=== PATIENT | female | born 1995 | race Caucasian/White ===

== ENCOUNTER → 2017-03-26 12:58 | Outpatient (CLI) | payer SELFPAY ==
--- NOTE | 2017-03-26 13:03 | US_ITS ---
STUDY: ULTRASOUND BREAST - RIGHT REASON FOR EXAM: Female, 21 years old. Palpable lump in the right breast. TECHNIQUE: Axial and longitudinal images of the RIGHT breast were performed with a high resolution ultrasound transducer. COMPARISON: None. FINDINGS: RIGHT Breast: The upper half of the right breast was examined by ultrasound. There is a homogeneous fibroglandular tissue. No solid or cystic mass lesion is seen. US/Breast Limited Unilateral IMPRESSION: Unremarkable sonographic examination of the breast. ASSESSMENT CATEGORY: BIRADS Category 1: Negative. A letter regarding these results will be sent to the patient by the facility within 30 days. Electronically Signed: Panchito Del Real MD at 14:04 EST Tel [phone], Service support ,
== END ==
DX: N63.12 Unspecified lump in the right breast, upper inner quadrant (principal)
CPT/HCPCS: 76642

== ENCOUNTER 2018-01-21 13:56 | Emergency (ER) | payer SELFPAY ==
[2018-01-21 13:57] VITALS: BP 188/91; PULSE 110; RESP 18; TEMP 36.2; O2SAT 98; BMI 40.4
--- NOTE | 2018-01-21 14:12 | NURSING ---
pt has has bad headaches x1 week, no past hx of HTN
[2018-01-21 14:13] VITALS: BP 150/79; PULSE 104; RESP 16; O2SAT 98
--- NOTE | 2018-01-21 14:35 | ED.VISSUMM ---
- ER Visit Summary Date of Service: 01/21/18 Chief Complaint: Elevated blood pressure History of Present Illness: The patient is a 22 F of elevated blood pressure which she was not started on medication. Had intermittent headaches. And had a blood pressure taken yesterday it was 175/96. She denies any chest pain. She denies any shortness of breath. Her last menstrual period was about a month ago. She denies any neurological symptoms. No numbness or weakness. No trouble with her balance. No visual change. Physical Examination: Ill-appearing young female. Vital signs are stable initial blood pressure 150/79. She does not look septic or toxic. She is in no distress. H EENT exam normal. No facial droop. Normal speech. Neck nontender. Lungs clear to auscultation bilaterally. Heart regular rhythm no murmur. Abdomen soft nontender. Normal bowel sounds no peritoneal signs. She is obese. Patient is moving all 4 extremities. They are neurovascularly intact. Calves are nontender without edema or cords. Neurologically she is awake and alert with no focal motor or sensory deficits. Bilateral 5 out of 5 post anesthesia room nurse strength. Dorsi plantar flexion intact. Fingertip to nose within normal limits. NIH is 0. Test Results: None Emergency Department Course and Treatment: Patient be started on lisinopril 20 mg a day. Log her blood pressures 2-3 times daily. She is not currently no primary care physician and she will be instructed to follow-up with Dr. Mik Hargrove. Treatment Plan: Start on lisinopril for her blood pressure. Disposition: Discharge Impression: Acute hypertension This note was generated with [employer] dictation software. It may contain incorrect words, spelling, and punctuation that were not noted in review of the chart prior to signing ED Disposition - Plan for ED Patient: Chief Complaint: Hypertension Referrals: Care Physician,No Primary [Primary Care Provider] -
--- NOTE | 2018-01-21 14:38 | ED.DCSUM_ITS ---
- ER Visit Summary Date of Service: 01/21/18 Chief Complaint: Elevated blood pressure History of Present Illness: The patient is a 22 F of elevated blood pressure which she was not started on medication. Had intermittent headaches. And had a blood pressure taken yesterday it was 175/96. She denies any chest pain. She denies any shortness of breath. Her last menstrual period was about a month ago. She denies any neurological symptoms. No numbness or weakness. No trouble with her balance. No visual change. Physical Examination: Ill-appearing young female. Vital signs are stable initial blood pressure 150/79. She does not look septic or toxic. She is in no distress. H EENT exam normal. No facial droop. Normal speech. Neck nontender. Lungs clear to auscultation bilaterally. Heart regular rhythm no murmur. Abdomen soft nontender. Normal bowel sounds no peritoneal signs. She is obese. Patient is moving all 4 extremities. They are neurovascularly intact. Calves are nontender without edema or cords. Neurologically she is awake and alert with no focal motor or sensory deficits. Bilateral 5 out of 5 turnstile attendant strength. Dorsi plantar flexion intact. Fingertip to nose within normal limits. NIH is 0. Test Results: None Emergency Department Course and Treatment: Patient be started on lisinopril 20 mg a day. Log her blood pressures 2-3 times daily. She is not currently no primary care physician and she will be instructed to follow-up with Dr. Mik Hargrove. Treatment Plan: Start on lisinopril for her blood pressure. Disposition: Discharge Impression: Acute hypertension This note was generated with [employer] dictation software. It may contain incorrect words, spelling, and punctuation that were not noted in review of the chart prior to signing ED Disposition - Plan for ED Patient: Chief Complaint: Hypertension Referrals: Care Physician,No Primary [Primary Care Provider] -
--- NOTE | 2018-01-21 14:40 | ED.DEP ---
ED Disposition - Plan for ED Patient: Disposition: Home or Assisted Living Chief Complaint: Hypertension Instructions: ED HTN Established Prescriptions: Lisinopril [Zestril] 20 mg PO DAILY #30 tab Referrals: Mik Hargrove MD [STAFF PHYSICIAN] - Additional Instructions: All your blood pressures daily x2. Start the lisinopril take 1 pill/day. Follow-up with your doctor and bring your blood pressure readings so they can adjust her medications accordingly.
[2018-01-21] MEDS: Lisinopril 20 MG Tablet PO (14:52)
[2018-01-21 14:57] VITALS: BP 160/100; PULSE 100; RESP 16; O2SAT 98
--- OUTSIDE RECORDS SUMMARY | 2018-03-18 14:11 | XMS RPT_ITS ---
:1995 Author Organization [facility] Care Team Providers Name Role Phone THOMAS STRICKLAND Attending Unavailable Primay Care Physicia, No Primary Care Unavailable Primay Care Physicia, No Primary Care Unavailable Dillan Jewell Attending Unavailable PROBLEMS PROBLEMS No Problem Records FoundPROCEDURES PROCEDURES No Procedure Records FoundRESULTS RESULTS DISCHARGE INSTRUCTION Observed: 01/21/2018 Status: F Source: [place] 4:17 PM [facility] Medical Records Department [address] [place] [address] Discharge Instruction 01/21/18 1440 MR#: [id number] Acct: [id number] Name: DONAL STOREY Rep #: [id number] : 1995 22 From: Dillan Jewell MD PCP: Care Physician, No Primary Status: DEP ER ED Disposition - Plan for ED Patient: Disposition: Home or Assisted Living Chief Complaint: Hypertension Instructions: ED HTN Established Prescriptions: Lisinopril [Zestril] 20 mg PO DAILY #30 tab Referrals: Mik Hargrove MD [STAFF PHYSICIAN] - Additional Instructions: All your blood pressures daily x2. Start the lisinopril take 1 pill/day. Follow-up with your doctor and bring your blood pressure readings so they can adjust her medications accordingly. What to do if you have Problems For any increased pain, shortness of breath, bleeding, nausea or vomiting, chest pain, or any unexpected problems, contact your Primary Care Provider. Call [facility] ([phone]) or report to the closest Emergency Room. Call 911 if necessary. 01/21/18 1617 <Electronically signed by Dillan Jewell MD> Date Dillan Jewell MD Cosigner Signature (If Indicated): Date CC: No Primary Care Physician EMERGENCY DEPARTMENT Observed: 01/21/2018 Status: F Source: [place] SUMMARY 4:17 PM [facility]POS[facility] Medical Records Department [address] [facility] [place] [address] Emergency Department Summary 01/21/18 1435 MR#: [id number] Acct: [id number] Name: ARLEIGHDONAL B Rep #: [id number] : 1995 22 From: Dillan Jewell MD PCP: Care Physician, No Primary Status: DEP ER - ER Visit Summary Date of Service: 01/21/18 Chief Complaint: Elevated blood pressure History of Present Illness: The patient is a 22 F of elevated blood pressure which she was not started on medication. Had intermittent headaches. And had a blood pressure taken yesterday it was 175/96. She denies any chest pain. She denies any shortness of breath. Her last menstrual period was about a month ago. She denies any neurological symptoms. No numbness or weakness. No trouble with her balance. No visual change. Physical Examination: Ill-appearing young female. Vital signs are stable initial blood pressure 150/79. She does not look septic or toxic. She is in no distress. H EENT exam normal. No facial droop. Normal speech. Neck nontender. Lungs clear to auscultation bilaterally. Heart regular rhythm no murmur. Abdomen soft nontender. Normal bowel sounds no peritoneal signs. She is obese. Patient is moving all 4 extremities. They are neurovascularly intact. Calves are nontender without edema or cords. Neurologically she is awake and alert with no focal motor or sensory deficits. Bilateral 5 out of 5 radiology asst strength. Dorsi plantar flexion intact. Fingertip to nose within normal limits. NIH is 0. Test Results: None Emergency Department Course and Treatment: Patient be started on lisinopril 20 mg a day. Log her blood pressures 2-3 times daily. She is not currently no primary care physician and she will be instructed to follow-up with Dr. Mik Hargrove. Treatment Plan: Start on lisinopril for her blood pressure. Disposition: Discharge Impression: Acute hypertension This note was generated with [employer] dictation software. It may contain incorrect words, spelling, and punctuation that were not noted in review of the chart prior to signing ED Disposition - Plan for ED Patient: Chief Complaint: Hypertension Referrals: Care Physician,No Primary [Primary Care Provider] - What to do if you have Problems For any increased pain, shortness of breath, bleeding, nausea or vomiting, chest pain, or any unexpected problems, contact your Primary Care Provider. Call [facility] ([phone]) or report to the closest Emergency Room. Call 911 if necessary. 01/21/18 1617 <Electronically signed by Dillan Jewell MD> Date Dillan Jewell MD Cosigner Signature (If Indicated): Date CC: No Primary Care Physician BREAST LIMITED Observed: 03/26/2017 Status: F Source: [place] UNILATERAL 1:03 PM [facility] REPOS[facility] Imaging Services [address] [place] [address] Breast Limited Unilateral MR#: [id number] Acct: [id number] Name: DONAL STOREY Rep #: [id number] : 1995 F 21 From: Panchito Del Real MD PCP: Care Physician, No Primary Status: REG CLI Study: Breast Limited Unilateral Date of Exam: 03/26/17 Exam# [id number] Ordering Dr: CHECO GASPAR CNP STUDY: ULTRASOUND BREAST - RIGHT REASON FOR EXAM: Female, 21 years old. Palpable lump in the right breast. TECHNIQUE: Axial and longitudinal images of the RIGHT breast were performed with a high resolution ultrasound transducer. COMPARISON: None. FINDINGS: RIGHT Breast: The upper half of the right breast was examined by ultrasound. There is a homogeneous fibroglandular tissue. No solid or cystic mass lesion is seen. US/Breast Limited Unilateral IMPRESSION: Unremarkable sonographic examination of the breast. ASSESSMENT CATEGORY: BIRADS Category 1: Negative. A letter regarding these results will be sent to the patient by the facility within 30 days. Electronically Signed: Panchito Del Real MD at 14:04 EST Tel [phone], Service support , CC: No Primary Care Physician; CHECO GASPAR Ux Manager: Signed ALLERGIES ALLERGIES DATE TYPE / CODE NAME / CODE REACTION SEVERITY SOURCE 01/21/2018 Drug clarithromyc Swelling Unknown [facility] Allergy/4160 in/[id number] Hospital [facility](SNOMED 8(RXNORM) Repository CT) 01/21/2018 Drug azithromycin Swelling Unknown [facility] Allergy/4160 /[id number]( [place] [address](SNOMED RXNORM) Repository CT) ENCOUNTERS ENCOUNTERS ADMIT/DISCHARGE ACCOUNT ADMITTING ENCOUNTER LOCATION SOURCE NUMBER CLASS 01/21/2018/ [id number] Emergency [place] 8 6 [facility] ing:ED Repository 03/26/2017 [id number] Ambulatory [place] 2 [facility] ing:[facility] Repository PAYERS PAYERS ENCOUNTER GUARANTOR PAYER SUBSCRIBER SOURCE 01/21/2018 DONAL García Primary NOT GIVENUNK [place] [id number] Insurance:SELF PAY [facility] [id number]: [phone]) Number: Effective Repository [phone] () Date:2018-01-21 03/26/2017 Donal Primary NOT GIVENHERMAN [id number] Insurance:SELF PAY [place], [place] Number: Effective Repository [phone]: [phone]) Date:2017-03-25 [phone] ()
== END 2018-01-21 15:00 | disposition home or self-care (01) ==
LOC: ED 14:46
PROVIDERS: Emergency Provider Emergency Medicine
DX: I10 Essential (primary) hypertension (principal); E66.9 Obesity, unspecified
CPT/HCPCS: 99283

== ENCOUNTER 2019-04-30 17:07 | Emergency (ER) | payer SELFPAY ==
[2019-04-30 17:08] VITALS: BP 160/81; PULSE 89; RESP 17; TEMP 36.4; O2SAT 99; BMI 49.0
--- NOTE | 2019-04-30 17:41 | ED.VIS.LOWEX ---
History of Present Illness Chief Complaint: Lower Extremity Injury Narrative: Patient presenting for evaluation secondary to right leg pain. Patient reports that yesterday she was simply walking, and had a sudden onset of pain in her right calf. She reports that she felt and heard a pop in her calf, and now she has difficulty with ambulating and pain with plantarflexion of her foot. She denies that she has any inability to plantarflex her foot. She denies any numbness or weakness. She denies any chest pain shortness of breath history of DVT or PE. She denies any other injuries associated with this. Pain is moderate. Past Medical History - Allergies and Home Meds Allergies/Adverse Reactions: Allergies azithromycin [From Zithromax Z-Lee] Allergy (Verified 04/30/19 17:07) Swelling clarithromycin [From Biaxin] Allergy (Verified 04/30/19 17:07) Swelling Primary Care Physician: Care Physician,No Primary [Primary Care Provider] - Past Medical History: None Smoking Status: Heavy Smoker (>10/day) Review of Systems All systems negative except as indicated General: Denies: Chills, Fever, Sweats Eyes: Denies: Visual changes - bilaterally, Diplopia ENT: Denies: Rhinorrhea, Sore throat Cardiovascular: Denies: Chest pain, Palpitations Respiratory: Denies: Dyspnea, Cough, Dyspnea on exertion Gastrointestinal: Denies: Abdominal pain, Nausea, Vomiting, Diarrhea, Melena, Hematochezia Genitourinary: Denies: Dysuria, Hematuria, Frequency Musculoskeletal: Reports: Extremity Pain Skin: Denies: Rash, Wounds Neurological: Denies: Headache, Weakness, Numbness Physical Exam Vital Signs/Narrative: Vital Signs Temp Pulse Resp BP Pulse Ox 04/30/19 17:08 97.5 F L 89 17 160/81 H 99 Inital Vital Signs reviewed: Yes - Extremity Exam Right Ankle: - - Examination of the patient's right lower extremity shows normal sensation and pulses that are bilaterally symmetric. Skin is normal. Patient has pain with palpation of the proximal calf without any obvious masses or deformity. No palpable cord. Patient has a negative Roberson test with no palpable deformities in the Achilles. Normal dorsiflexion and plantarflexion at the ankle. General: Well nourished, Well developed, Obese Head: Normocephalic Eyes: EOMI ENT: No Trauma Neck: Nontender, Full ROM Cardiovascular: Regular rate, Regular rhythm, No murmurs Respiratory: No distress, CTA bilaterally Skin: Normal color, No rash Neurological: Alert, Oriented x3, Normal Strength, Normal Sensation Diagnostic/Tx/Re-eval - Medical Decision Making Patient presented with a sudden onset of right calf pain. She has no palpable defects in her Achilles. This does not seem like a presentation of Achilles tendon rupture. She has no weakness with plantar flexion. Patient also has no palpable cord or any risks of DVT or PE. This likely is a partial tear of the patient's gastrocnemius. Patient will be immobilized with a walking boot and will be given orthopedics for follow-up. ED Disposition - Plan for ED Patient: Disposition: Home or Assisted Living Diagnosis: Gastrocnemius muscle rupture Instructions: MUSCLE STRAIN, Extremity Referrals: Jarvis Murphy DO [STAFF PHYSICIAN] - 1 Week
== END 2019-04-30 18:10 | disposition home or self-care (01) ==
LOC: ED 18:02
PROVIDERS: Emergency Provider Emergency Medicine
DX: S86.111A Strain of other muscle(s) and tendon(s) of posterior muscle group at lower leg level, right leg, initial encounter (principal); X58.XXXA Exposure to other specified factors, initial encounter; Y93.9 Activity, unspecified; Y92.9 Unspecified place or not applicable; Y99.9 Unspecified external cause status; E66.9 Obesity, unspecified; F17.200 Nicotine dependence, unspecified, uncomplicated; Z88.1 Allergy status to other antibiotic agents
CPT/HCPCS: 99283

== ENCOUNTER → 2019-07-10 13:55 | Outpatient (CLI) | payer OTHER, SELFPAY ==
--- NOTE | 2019-07-10 14:04 | US_ITS ---
STUDY: ULTRASOUND BREAST - RIGHT REASON FOR EXAM: Female, 23 years old. Palpable lump in the right breast. TECHNIQUE: Axial and longitudinal images of the RIGHT breast were performed with a high resolution ultrasound transducer. # OF IMAGES: 28 COMPARISON: None. FINDINGS: RIGHT Breast: There is no abnormality in the soft tissues of the breast to correlate with the mammographic abnormality. There is no abnormal soft tissue tissue mass. There is no cyst formation. US/Breast Limited Unilateral IMPRESSION: There is no abnormality in the soft tissues of the breast to correlate with the mammographic abnormality. There is no abnormal soft tissue tissue mass. There is no cyst formation. ASSESSMENT CATEGORY: BIRADS Category 2: Benign. A letter regarding these results will be sent to the patient by the facility within 30 days. Electronically Signed: Mirna Marroquin, at 13:56 EDT Tel , Service support ,
--- NOTE | 2019-07-10 14:04 | BI_ITS ---
MAMMOGRAPHY - BILATERAL DIAGNOSTIC REASON FOR EXAM: Female, 23 years old. RT LUMP PERTINENT HISTORY: NO FM HX, DOCTOR FOUND RT LUMP 9-11 O''CLOCK AREA AUGUST 2018 -PT CAN NOT FEEL IT , RT U/S OF DIFFERENT AREA IN 2018=NEG, THIS IS HER FIRST MAMMOGRAM TECHNIQUE: Digital bilateral breast georgina (3D mammographic acquisition) in the CC and MLO projections. 2-D mediolateral oblique (MLO) and craniocaudad (CC) views of both breasts were obtained. CAD: Full Field Digital Mammography with Computer Added Detection was performed. COMPARISON: None. FINDINGS: Breast Composition: There are scattered areas of fibroglandular density. There are no dominant masses or suspicious calcifications. No other significant abnormalities are identified. BI/DIAG MAMM W/CAD, BILAT IMPRESSION: Stable bilateral diagnostic mammogram. One year follow-up recommended. (A) ASSESSMENT CATEGORY: BIRADS Category 2: Benign. A letter regarding these results will be sent to the patient by the facility within 30 days. Approximately 10% of breast cancers are not detected by mammography. A normal mammogram should not delay biopsy of a clinically suspicious abnormality. Electronically Signed: Mirna Marroquin, at 12:26 EDT Tel , Service support ,
== END ==
PROVIDERS: Visit Provider Nurse Practitioner Women's Health
DX: N63.11 Unspecified lump in the right breast, upper outer quadrant (principal)
CPT/HCPCS: 76642; 77062; 77066; G0279

== ENCOUNTER 2020-02-24 03:47 | Emergency (ER) | payer OTHER, SELFPAY ==
[2020-02-24 03:50] VITALS: BP 143/92; PULSE 96; RESP 16; TEMP 36.8; O2SAT 99; BMI 40.4
--- NOTE | 2020-02-24 04:05 | ED.VIS.GEN ---
History of Present Illness Chief Complaint: Fever Informant: Patient Narrative: Patient stated she is having dental pain for last week course of last couple days. Right upper premolar. She doesn't have an appointment with her dentist yet. Requesting antibiotics to have this under control. She has had this before. States she has some very mild right cheek swelling. She noticed some fevers of the last couple days. No other coronavirus symptoms. Wanted to get things under control. Current severity mild. Use Tylenol and ibuprofen. Past Medical History - Allergies and Home Meds Allergies/Adverse Reactions: Allergies azithromycin [From Zithromax Z-Lee] Allergy (Verified 02/24/20 03:49) Swelling clarithromycin [From Biaxin] Allergy (Verified 02/24/20 03:49) Swelling Primary Care Physician: Ivy Reynaga MD [Primary Care Provider] - Prior records reviewed: Yes Past Medical History: - - Reviewed Surgical History: - - Reviewed Smoking Status: Never smoker Alcohol: None Drugs: None Review of Systems General: Reports: Fever. Denies: Chills, Sweats Eyes: Denies: Visual changes - bilaterally, Diplopia ENT: Reports: - - Right upper dental pain. Denies: Rhinorrhea, Sore throat Cardiovascular: Denies: Chest pain, Palpitations Respiratory: Denies: Dyspnea, Cough, Dyspnea on exertion Gastrointestinal: Denies: Abdominal pain, Nausea, Vomiting, Diarrhea, Melena, Hematochezia Genitourinary: Denies: Dysuria, Hematuria, Frequency Musculoskeletal: Denies: Back pain, Extremity Pain Skin: Denies: Rash, Wounds Neurological: Denies: Headache, Weakness, Numbness Physical Exam Vital Signs/Narrative: Vital Signs Temp Pulse Resp BP Pulse Ox 02/24/20 03:50 98.2 F 96 16 143/92 H 99 General: Well nourished, Well developed, No Acute Distress Head: Normocephalic, Atraumatic Eyes: Perrl, EOMI ENT: Moist mucous membranes, No rhinorrhea, - - Right upper dental tenderness with no abscess. On the molar tooth. Neck: Supple, Nontender Cardiovascular: Regular rate, Regular rhythm, No murmurs Respiratory: No distress, CTA bilaterally, Chest nontender Abdomen: Soft, Nontender, Nondistended, Normal bowel sounds Back: Nontender, Normal Inspection Extremities: Nontender, No edema Skin: Normal color, No rash Neurological: Alert, Oriented x3, Cranial nerves II-XII grossly intact, Normal Strength, Normal Sensation Psychological: Normal affect, Normal Mood Diagnostic/Tx/Re-eval - Medical Decision Making Amoxicillin for suspected periapical dental infection. Coronavirus outpatient swab sent. We'll continue [id number] and follow-up as an outpatient ED Disposition - Plan for ED Patient: Disposition: Home or Assisted Living Diagnosis: Dental infection, Fever Instructions: ED Tooth Abscess, ED FUO Adult Prescriptions: Amoxicillin 500 mg PO TID #30 tab Transmission Status: Pending to [id number] Referrals: Ivy Reynaga MD [Primary Care Provider] -
[2020-02-24] MEDS: AMOXICILLIN 500 MG CAPSULE PO (04:20)
== END 2020-02-24 04:21 | disposition home or self-care (01) ==
LOC: ED 04:13
PROVIDERS: Emergency Provider Emergency Medicine; PCP Internal Medicine
DX: K04.7 Periapical abscess without sinus (principal); K08.89 Other specified disorders of teeth and supporting structures; R50.9 Fever, unspecified; Z20.828 Contact with and (suspected) exposure to other viral communicable diseases
CPT/HCPCS: 87426; 99283

== ENCOUNTER 2020-12-04 20:03 | Emergency (ER) | payer OTHER, SELFPAY ==
[2020-12-04 20:03] VITALS: BP 135/67; PULSE 106; RESP 18; TEMP 36.4; O2SAT 97; BMI 46.7
== END 2020-12-04 20:46 | disposition left against medical advice (07) ==
LOC: ED 20:55
PROVIDERS: PCP Internal Medicine
DX: M79.645 Pain in left finger(s) (principal); Z53.21 Procedure and treatment not carried out due to patient leaving prior to being seen by health care provider

== ENCOUNTER 2020-12-21 09:50 | Emergency (ER) | payer OTHER, SELFPAY ==
[2020-12-21 09:51] VITALS: BP 135/80; PULSE 106; RESP 18; TEMP 36.8; O2SAT 98; BMI 41.5
--- NOTE | 2020-12-21 10:24 | EDS_ITS ---
HPI History of Present Illness Chief Complaint: Back Informant: patient Onset/Context/Timing Onset: Weeks Context: Gradual Onset Timing: Continuous Quality: Sharp Location: Buttock Current Severity: Mild Maximum Severity: Moderate Worsened by: improves with Movement Relieved by: Nothing Associated Symptoms Associated Symptoms: Negative for Numbness, Tingling, Radiation to Right Leg, Ra diation to Left Leg, Fever, Abdominal Pain, Dysuria, Unable to Ambulate, Unable to Transfer, Urinary Retention, Urinary Incontinence and Constipation Narrative Narrative: 25-year-old female complaining of right lower back buttock pain. Denies any trauma or fever. No back history. No history of sciatica. Was seen in urgent care had microscopic blood in her urine but no signs of infection. They diagnosed her as sciatica. She says she has been taking Tylenol and Aleve without any relief. Prior similar symptoms: No Recent Illness/Hospitalization: No PFSH PFSH Medical History Depression Essential hypertension Sinus tachycardia Home Medications duloxetine 40 mg PO DAILY 02/24/20 [History Last Taken Unknown] prednisone 40 mg PO DAILY 7 Days #14 tab 12/21/20 [Rx Last Taken Unknown] Allergy/AdvReac Type Severity Reaction Status Date / Time azithromycin Allergy Swelling Verified 12/21/20 09:52 [From Zithromax Z-Lee] clarithromycin [From Biaxin] Allergy Swelling Verified 12/21/20 09:52 Family History Father Diabetes Grandmother Cancer Lung Grandfather Diabetes Social History Smoking Status: Never smoker alcohol intake: never substance use type: does not use ROS ROS ED ROS Narrative Denies recent illness. No dysuria. Review of Systems ROS Unobtainable: Denies due to encephalopathy Constitutional Constitutional ED: Denies fever(s) Eyes Eyes: Denies change in vision ENT ENT ED: Denies ear pain Cardiovascular Cardiovascular: Denies chest pain Respiratory/Chest Respiratory/Chest: Denies dyspnea Gastrointestinal Gastrointestinal: Denies abdominal pain Genitourinary Genitourinary ED: Denies dysuria Musculoskeletal Musculoskeletal: Reports back pain; Denies myalgias Integumentary Denies rash Neurologic Neurologic: Denies headache(s) Psychiatric Psychiatric: Denies depression Endocrine Endocrinology: Denies polyuria Hematologic/Lymphatic Hematologic/Lymphatic: Denies easy bruising Allergic/Immunologic Allergic/Immunologic ED: Denies urticaria EXAM Physical Exam Narrative Exam Narrative: 25-year-old female no acute distress vital signs stable afebrile. Back exam nontender except right SI joint tenderness. Negative straight leg raise. Both lower extremities are neurovascular intact. Spine nontender. No signs of trauma. No redness or warmth. No CVA tenderness. Heart lung abdominal exams unremarkable. Both lower extremities are neurovascular intact with normal motor strength and sensation. No cauda equina. Const Vital Signs: 12/21/20 09:51 Temperature 98.2 F Temperature Source Temporal Pulse Rate 106 H Respiratory Rate 18 Blood Pressure 135/80 H Blood Pressure Mean 98 Pulse Ox 98 Oxygen Delivery Method Room Air Positive well nourished, well developed and obese; Negative for cachectic, contractures or unkempt General Appearance ED: well developed and NAD; Negative for unkempt, cachectic, contractures or pallor Nutritional Appearance: obese; Negative for cachectic HEENT Reports moist mucous membranes Negative for trauma or tenderness Eyes PERRL and EOMs intact bilaterally Neck no lymphadenopathy, supple and no JVD General: Negative for tenderness Resp normal respiratory effort and clear to auscultation bilaterally Cardio regular rate, regular rhythm, S1 normal heart sound, S2 normal heart sound and no murmurs GI normal to inspection, nondistended, normoactive bowel sounds, soft to palpation, non-tender, non-distended and no masses Palpation: Negative for tender or guarding Back/Spine normal to inspection and no thoracic nor lumbar tenderness Back/Spine Narrative: Right SI joint tenderness exclusively. No other ten derness. Negative straight leg raise. General Back: Negative for CVA tenderness or scar(s) Cervical Spine: Negative for cervical spine tenderness Extremity normal to inspection General Extremety ED: Negative for edema or tenderness General Extremity: Negative for edema Psych mental status grossly normal Appearance: Negative for unkempt Skin no rashes or lesions noted and no wounds General Skin Exam: Negative for jaundice or pallor MDM MDM MDM Narrative Medical decision making narrative: History and exam consistent with acute sciatica. Patient has no other reproducible pain other than her right SI joint. She has a negative straight leg raise. Both lower extremities are neurovascularly intact and she has no urinary symptoms. She states that Andrew is not been giving her any significant relief. She does not want pain medications. She will be placed on prednisone given a dose here. Discharge Plan Triage Chief Complaint: Back ED Provider: John Paul Jewell Dx/Rx/DC Orders Clinical Impression: Sciatica Instructions: ED Sciatica Prescriptions: New prednisone 20 mg tablet 40 mg PO DAILY 7 Days Qty: 14 RF: 0 No Action duloxetine 30 MG capsule 40 mg PO DAILY RF: 0 Primary Care Provider: Ivy Reynaga Referrals: Ivy Reynaga MD [Primary Care Provider] - 1 Week if not improving Activity Restrictions/Additional Instructions: Ice to your right SI joint to decrease pain and inflammation. Prednisone daily for a week. Follow-up if not improving. This is consistent with right sciatica and not a kidney stone or kidney infection. This should progressively improve. Disposition Disposition: Home, Self Care
[2020-12-21] MEDS: predniSONE 20 MG Tablet 40 MG PO (10:47)
[2020-12-21 10:48] VITALS: RESP 17
== END 2020-12-21 10:53 | disposition home or self-care (01) ==
LOC: ED 10:36
PROVIDERS: Emergency Provider Emergency Medicine; PCP Internal Medicine
DX: M54.41 Lumbago with sciatica, right side (principal); I10 Essential (primary) hypertension; F32.A Depression, unspecified; E66.9 Obesity, unspecified; Z79.899 Other long term (current) drug therapy
CPT/HCPCS: 99283

== ENCOUNTER → 2021-01-22 12:55 | Outpatient (CLI) | payer OTHER, SELFPAY ==
--- NOTE | 2021-01-22 12:58 | ECHOD_ITS ---
Reason For Study: ARRHYTHMIA Procedure This was a 2D Doppler, Color Flow transthoracic echocardiogram. The study was technically difficult. Due to body habitus. Exam performed in department. Left Ventricle Based upon the 2D echocardiographic and contrast enhanced images obtained there appears to be grossly normal left ventricular size, wall motion, and systolic function. The estimated ejection fraction is 55 %. No evidence for diastolic dysfunction. Right Ventricle Normal RV size. Normal systolic function. Atria Normal left atrium. Normal right atrium. No doppler evidence for ASD. Mitral Valve There is no mitral annular calcification. 2D echocardiographic images demonstrate a small mobile echodensity on the atrial aspect of the posterior leaflet of the mitral valve appearing compatible with a fibrinous strands/Lambls excrescence. Trivial mitral valve insufficiency. Tricuspid Valve Normal tricuspid valve. Trivial tricuspid valve insufficiency. Unable to estimate RV systolic pressure/pulmonary artery pressure due to technically difficult study. Aortic Valve Trisinus/trileaflet aortic valve. Normal aortic valve. Pulmonic Valve The pulmonic valve is not well visualized. Trivial pulmonic valve insufficiency. Great Vessels Normal sized aortic root. Pericardium/Pleural No pericardial effusion. MMode/2D Measurements & Calculations LVIDd: 5.0 cm IVSd: 0.97 cm Ao root diam: 2.7 cm LVIDs: 3.5 cm LVPWd: 1.1 cm RVDd: 3.5 cm FS: 29.5 % LAV(MOD-bp): 72.3 ml LA A4 area: 22.6 cm2 LA dimension(2D): 4.1 cm LAV(MOD-bp) Indexed: 28.1 ml/m2 LAV(MOD-sp2): 67.2 ml LAV(MOD-sp4): 71.8 ml RA A4 area: 16.7 cm2 Time Measurements MV dec time: 0.22 sec Doppler Measurements & Calculations MV E max willy: 87.6 cm/sec Lat Peak E' Willy: 15.1 cm/sec Med Peak E' Willy: 11.0 cm/sec MV A max willy: 63.5 cm/sec E/E' lat: 5.8 E/E' med: 8.0 MV E/A: 1.4 Ao V2 max: 111.5 cm/sec LV V1 max: 102.2 cm/sec PA V2 max: 97.0 cm/sec Ao max P.0 mmHg LV V1 max P.2 mmHg ECHO/Echo Complete Interpretation Summary The study was technically difficult. Based upon the 2D echocardiographic and contrast enhanced images obtained there appears to be grossly normal left ventricular size, wall motion, and systolic function. The estimated ejection fraction is 55 %. 2D echocardiographic images demonstrate a small mobile echodensity on the atria l aspect of the posterior leaflet of the mitral valve appearing compatible with a fibrinous str ands/Lambls excrescence. Trivial mitral valve insufficiency. Trivial tricuspid valve insufficiency. Trivial pulmonic valve insufficiency. Unable to estimate RV systolic pressure/pulmonary artery pressure due to techni olya difficult study. No evidence for diastolic dysfunction. Ordering Physician: Judy^Thong^^^ Referring Physician: Ivy Reynaga Performed By: Valerie Jiménez, LUCINA, RVT
== END ==
LOC: CVS 12:56
PROVIDERS: PCP Internal Medicine; Referring Provider Internal Medicine Cardiovascular Disease; Visit Provider Internal Medicine Cardiovascular Disease
DX: I10 Essential (primary) hypertension (principal); R00.0 Tachycardia, unspecified; R00.2 Palpitations
CPT/HCPCS: 93225; 93226; 93306

== ENCOUNTER 2021-06-03 13:02 | Emergency (ER) | payer OTHER, SELFPAY ==
[2021-06-03 13:02] VITALS: BP 150/89; PULSE 112; RESP 18; TEMP 36.5; O2SAT 97; BMI 45.8
--- NOTE | 2021-06-03 13:11 | EX.ED.DYSGE1 ---
HPI History of Present Illness Chief Complaint: Nausea/Vomiting/Diarrhea Detail of Chief Complaint: Nausea, vomiting, and diarrhea, x5 days Informant: patient Narrative Narrative: Patient presents to the emergency department with vomiting and diarrhea that started 5 days ago. She initially had a fever. Patient ate a hamburger the night before she started feeling sick. Patient states 2 hours after eating a hamburger she just did not feel well but then the next morning she woke up and started having vomiting and diarrhea. During the first day she had fever but none since. Still having watery stool. There is no blood in her stool or emesis. Patient states she cannot keep anything down. She describes bloating and diffuse abdominal discomfort. She denies any sick contacts. She is not had recent antibiotic usage. Prior similar symptoms: No PFSH PFSH Medical History Depression Essential hypertension Sinus tachycardia Home Medications duloxetine 40 mg capsule,delayed release 40 mg PO DAILY 01/02/21 [History Last Taken Unknown] diphenoxylate-atropine [Lomotil] 2 tab PO TID PRN #20 tab 06/03/21 [Rx Last Taken Unknown] ondansetron 4 mg PO Q8H PRN PRN #10 tab 06/03/21 [Rx Last Taken Unknown] Allergy/AdvReac Type Severity Reaction Status Date / Time azithromycin Allergy Swelling Verified 06/03/21 13:05 [From Zithromax Z-Lee] clarithromycin [From Biaxin] Allergy Swelling Verified 06/03/21 13:05 Family History Father Diabetes Grandmother Cancer Lung Grandfather Diabetes Mother Mitral valve prolapse Social History Smoking Status: Never smoker alcohol intake: never substance use type: does not use caffeine: Yes Type: carbonated beverages Number of servings: 2 and coffee Number of servings: 1 ROS ROS ED Constitutional Constitutional ED: Reports systems reviewed and no addt'l complaints, except as documented; Denies body ache(s), change in weight or chills Eyes Eyes: Denies acute decrease in peripheral vision, change in vision, double vision or loss of vision ENT ENT ED: Reports none; Denies ear pain, lip swelling, loss taste/smell, neck pain, otalgia or sore throat Cardiovascular Cardiovascular: Reports none; Denies abdominal pain, chest pain with activity, leg edema, lightheadedness, palpitations, rapid heart rate or syncope Respiratory/Chest Respiratory/Chest: Reports none; Denies change in mental status, dry cough, dyspnea, hemoptysis, shortness of breath at rest or shortness of breath with exertion Gastrointestinal Gastrointestinal: Reports none, diarrhea, nausea and vomiting; Denies abdominal pain, change in stool character, hematemesis, hematochezia, melena or rectal bleeding Genitourinary Genitourinary ED: Reports none; Denies abdominal discomfort, anuria, dysuria, genital pain or polyuria Musculoskeletal Musculoskeletal: Reports none; Denies arthralgias, back pain, difficulty walking, extremity pain, muscle weakness or myalgias Integumentary Reports none; Denies abscess or rash Neurologic Neurologic: Reports none; Denies abnormal gait, confusion, focal weakness, frequent falls, headache(s), loss of vision, numbness, paresthesias, radicular pain, vertigo or weakness Psychiatric Psychiatric: Reports systems reviewed and no addt'l complaints, except as documented and none; Denies behavioral changes, confusion, difficulty concentrating, hallucinations, suicidal ideation, tactile hallucinations or visual hallucinations Endocrine Endocrinology: Denies none, cold intolerance, excessive sweating, fatigue or heat intolerance Hematologic/Lymphatic Hematologic/Lymphatic: Reports none; Denies anemia, easy bleeding or easy bruising Allergic/Immunologic Allergic/Immunologic ED: Denies as per HPI, none, lip swelling, mouth swelling, throat swelling, tongue swelling or hives EXAM Physical Exam Const Vital Signs: 06/03/21 13:02 Temperature 97.7 F L Temperature Source Temporal Pulse Rate 112 H Respiratory Rate 18 Blood Pressure 150/89 H Blood Pressure Mean 109 Pulse Ox 97 Oxygen Delivery Method Room Air Positive well nourished and well developed General Appearance ED: well developed and NAD HEENT Reports TM's clear and moist mucous membranes normocephalic and atraumatic; Negative for trauma or tenderness Tympanic Membrane ED: Yes TM's clear Eyes PERRL and EOMs intact bilaterally General Eye ED: Negative for pale conjunctiva or scleral icterus Neck no lymphadenopathy, supple and no JVD General: Negative for tenderness Chest Wall inspection of chest normal and palpation of chest normal Chest: Negative for tenderness Resp normal respiratory effort and clear to auscultation bilaterally Effort and Inspection: Negative for respiratory distress or pain with movement Auscultation: Negative for rhonchi, wheezes or diminished lung sounds Cardio regular rate, regular rhythm, S1 normal heart sound, S2 normal heart sound and no murmurs Peripheral Pulses: pulses 2+ throughout GI normal to inspection, nondistended, normoactive bowel sounds, soft to palpation, non-tender, non-distended and no masses Back/Spine no CVA tenderness and no thoracic nor lumbar tenderness Extremity normal to inspection General Extremety ED: Negative for edema General Extremity: Negative for edema Neuro oriented x3, CN's II-XII intact bilaterally, no sensory deficits noted and gait normal Sensorium / Orientation: awake, alert, oriented to person, oriented to place and oriented to time Motor Exam: strength 5/5 throughout and strength abnormal Psych mental status grossly normal Skin no rashes or lesions noted and no wounds MDM MDM MDM Narrative Medical decision making narrative: Established on arrival. Patient was given a liter mostly of fluid bolus. Patient was given Zofran 4 mg IV. Patient was given Lomotil. Lab work was unremarkable. At this point I suspect a viral gastroenteritis. Patient could not give a sample in the emergency department. I will start her on Zofran and Lomotil for home. Patient to push fluids. She is to return if worsening pain, fever, persistent vomiting, dehydration, or condition worsen anyway. Lab Data Attestation: I reviewed the patient's lab results. Labs: Laboratory Results - last 24 hr 06/03/21 06/03/21 06/03/21 13:19 13:19 13:19 WBC 6.8 RBC 5.03 Hgb 14.0 Hct 41.9 MCV 83.3 MCH 27.8 MCHC 33.4 RDW Std Deviation 39.8 RDW Coeff of Krystin 13.2 Plt Count 273 MPV 8.6 Immature Gran % (Auto) 0.100 Neut % (Auto) 65.5 Lymph % (Auto) 24.7 [place] % (Auto) 7.5 Eos % (Auto) 1.8 Baso % (Auto) 0.4 Absolute Neuts (auto) 4.4 Absolute Lymphs (auto) 1.68 Nucleated RBC % 0 Sodium 138 Potassium 4.0 Chloride 108 H Carbon Dioxide 24.0 Anion Gap 6 BUN 12 Creatinine 0.77 Estim Creat Clear Calc 118.68 Est GFR (MDRD) Af Amer 115 Est GFR (MDRD) Non-Af 95 BUN/Creatinine Ratio 15.5 Glucose 91 Lactic Acid 0.7 Calcium 8.8 Discharge Plan Triage Chief Complaint: Nausea/Vomiting/Diarrhea ED Provider: Muriel Hutson Dx/Rx/DC Orders Clinical Impression: Viral gastroenteritis Instructions: ED Gastroenteritis, Viral (Adult) Prescriptions: New ondansetron [ondansetron] 4 MG tablet 4 mg PO Q8H PRN PRN (Reason: Nausea) Qty: 10 RF: 0 diphenoxylate-atropine [Lomotil] 2.5-0.025 mg tablet 2 tab PO TID PRN (Reason: diarrhea) Qty: 20 RF: 0 No Action duloxetine 40 mg capsule,delayed release(DR/EC) 40 mg PO DAILY RF: 0 Primary Care Provider: Ivy Reynaga Referrals: Ivy Reynaga MD [Primary Care Provider] - 3-5 Days Disposition Disposition: Home, Self Care
[2021-06-03] MEDS: Ondansetron 4 MG/2 ML Vial IV (13:26)
[2021-06-03] MEDS: 0.9% Normal Saline 1,000 ML 1000 ML IV (13:26)
[2021-06-03] MEDS: Diphenoxylate/Atrop 1 Tablet 2 TABLET PO (13:26)
[2021-06-03 13:32] LABS: Absolute Lymphocyte Count 1.68 X10^3/uL (0.83-4.51); Absolute Neutrophil Count 4.4 X10^3/uL (2.0-7.7); Basophil# 0.03 X10^3/uL; Basophil% 0.4 % (0-1); Eosinophil# 0.12 X10^3/uL; Eosinophils% 1.8 % (0-5); Hematocrit 41.9 % (37-47); Lymphocyte # 1.68 X10^3/ul (0.83-4.51); Lymphocyte % 24.7 % (19-41); Mean Corp Hgb Conc 33.4 g/dL (32-36); Mean Corpuscular Hgb 27.8 pg (27.0-32.0); Mean Corpuscular Volume 83.3 fL (81-99); Mean Platelet Vol. 8.6 fl (6.2-12.0); Monocyte# 0.51 X10^3/uL; Monocyte% 7.5 % (0-10); NRBC Flagged by Analyzer 0 % (0-5); Neutrophil # 4.44 X10^3/uL (2.7-7.7); Neutrophil % 65.5 % (47-70); Platelet Count 273 K/mm3 (150-450); RBC Distribution Width CV 13.2 % (11.6-14.6); RBC Distribution Width SD 39.8 fl (35.1-43.9); Red Blood Count 5.03 M/mm3 (4.2-5.4); White Blood Count 6.8 K/mm3 (4.4-11.0)
[2021-06-03 13:38] LABS: Anion Gap 6 (5-15); BUN 12 mg/dL (7-18); BUN/Creat Ratio 15.5 RATIO (10-20); Calcium,Total 8.8 mg/dL (8.5-10.1); Chloride 108 mmol/L (98-107); Creatinine, Serum 0.77 mg/dL (0.55-1.02); EST Glomerular Filtration Rate 95 mL/min (>60); Est Glom Filt Rate - Afr Amer 115 mL/min (>60); Estimated Creatinine Clearance 118.68 ml/min; Glucose 91 mg/dL (74-106); Sodium Level 138 mmol/L (136-145)
[2021-06-03 13:53] LABS: Lactic Acid 0.7 mmol/L (0.4-1.9)
== END 2021-06-03 14:34 | disposition home or self-care (01) ==
PROVIDERS: Emergency Provider Emergency Medicine; PCP Internal Medicine; Visit Provider Emergency Medicine
DX: A08.4 Viral intestinal infection, unspecified (principal); I10 Essential (primary) hypertension
CPT/HCPCS: 80048; 83605; 85025; 96361; 96374; 99284; J7030; A4216; J2405

== ENCOUNTER 2021-12-24 16:52 | Emergency (ER) | payer OTHER, SELFPAY ==
[2021-12-24 16:53] VITALS: BP 151/87; PULSE 97; RESP 16; TEMP 36.3; O2SAT 99; BMI 40.1
--- NOTE | 2021-12-24 17:51 | EDS_ITS ---
HPI History of Present Illness Chief Complaint: Chest Pain Narrative Narrative: 26-year-old female presenting with a history of chest pain. She states it started today. She had a little bit of a headache with it and she stated radiated to the left arm. Patient reports that she does have a history of atrial fibrillation and has seen Dr. Vasquez in the past. She states she is on a beta-chung for this. She has not changed it. She has not missed any doses. She is not anticoagulated. Patient states this lasted just about 20 minutes. She is unsure if he was out of rhythm. No history of CAD. She is not sure why she has atrial fibrillation. She does states she has a history of hypertension. [facility] Medical History Depression Essential hypertension Sinus tachycardia Home Medications duloxetine 40 mg capsule,delayed release 40 mg PO DAILY 01/02/21 [History Last Taken Unknown] diphenoxylate-atropine 2.5 mg-0.025 mg tablet (Lomotil) 2 tab PO TID PRN diarrhea #20 tabs 06/03/21 [Rx Last Taken Unknown] ondansetron 4 mg disintegrating tablet 4 mg PO Q8H PRN PRN Nausea #10 tabs 06/03/21 [Rx Last Taken Unknown] Allergy/AdvReac Type Severity Reaction Status Date / Time azithromycin Allergy Swelling Verified 12/24/21 16:55 [From Zithromax Z-Lee] clarithromycin [From Biaxin] Allergy Swelling Verified 12/24/21 16:55 Family History Father Diabetes Grandmother Cancer Lung Grandfather Diabetes Mother Mitral valve prolapse Social History Smoking Status: Never smoker alcohol intake: never substance use type: does not use caffeine: Yes Type: carbonated beverages Number of servings: 2 and coffee Number of servings: 1 ROS ROS ED Review of Systems ROS Unobtainable: Denies due to encephalopathy Constitutional Constitutional ED: Denies chills or fever(s) Eyes Eyes: Denies none or blurry vision ENT ENT ED: Denies ear pain or rhinorrhea Cardiovascular Cardiovascular: Reports as per HPI Respiratory/Chest Respiratory/Chest: Denies cough or dyspnea Gastrointestinal Gastrointestinal: Denies abdominal pain or constipation Genitourinary Genitourinary ED: Denies dysuria or hematuria Musculoskeletal Musculoskeletal: Denies arthralgias Integumentary Denies abscess Neurologic Neurologic: Denies headache(s) or paresthesias Psychiatric Psychiatric: Denies anxiety or depression EXAM Physical Exam Const Vital Signs: 12/24/21 16:53 12/24/21 16:53 12/24/21 17:53 Temperature 97.3 F L Temperature Source Temporal Pulse Rate 97 Respiratory Rate 16 Respiratory Pattern Normal Blood Pressure 151/87 H Blood Pressure Mean 108 Pulse Ox 99 Oxygen Delivery Method Room Air Room Air 12/24/21 17:53 Temperature Temperature Source Pulse Rate 103 H Respiratory Rate 18 Respiratory Pattern Blood Pressure 130/87 H Blood Pressure Mean 101 Pulse Ox 99 Oxygen Delivery Method Room Air Positive well nourished General Appearance ED: NAD; Negative for pallor HEENT Reports moist mucous membranes normocephalic and atraumatic Eyes PERRL and EOMs intact bilaterally Chest Wall inspection of chest normal and palpation of chest normal Resp normal respiratory effort and clear to auscultation bilaterally Auscultation: Negative for rales, rhonchi or wheezes Cardio regular rhythm Rate: tachycardic GI normal to inspection, nondistended, normoactive bowel sounds Extremity normal to inspection Neuro oriented x3 and CN's II-XII intact bilaterally Sensorium / Orientation: awake and alert Psych mental status grossly normal Skin no rashes or lesions noted and no wounds General Skin Exam: Negative for jaundice or pallor Heart Score History: Slightly/Non-Suspicious ECG: Normal Age: </= 45 years Risk Factors: 1 or 2 Risk Factors Score: 1 MDM MDM MDM Narrative Medical decision making narrative: 26-year-old female with history of hypertension and atrial fibrillation. She is on a beta-chung and states that she is not anticoagulated. She had some chest pain which she described as pressure on the left side of her chest for about 20 minutes. She had a headache which also resolved. Unclear if she had an episode of atrial fibrillation but has not missed any doses of her medications. EKG on my interpretation. Chest x-ray image of the patient shows no acute cardiopulmo nary process and radiologist read. CBC and BMP are unremarkable. High- sensitivity troponin is less than 3. Given this I feel the patient can be safely discharged. 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 Return precautions were discussed. Impression: 1. Chest pain Lab Data Attestation: I reviewed the patient's lab results. Labs: Laboratory Results - last 24 hr 12/24/21 12/24/21 17:15 17:15 WBC 8.2 RBC 4.68 Hgb 13.4 Hct 39.2 MCV 83.8 MCH 28.6 MCHC 34.2 RDW Std Deviation 39.1 RDW Coeff of Krystin 13.0 Plt Count 314 MPV 8.8 Immature Gran % (Auto) 0.200 Neut % (Auto) 59.2 Lymph % (Auto) 33.1 Williams % (Auto) 4.9 Eos % (Auto) 2.0 Baso % (Auto) 0.6 Absolute Neuts (auto) 4.8 Absolute Lymphs (auto) 2.71 Nucleated RBC % 0 Sodium 137 Potassium 3.9 Chloride 104 Carbon Dioxide 26.0 Anion Gap 7 BUN 15 Creatinine 0.71 Estim Creat Clear Calc 127.57 Est GFR (MDRD) Af Amer 126 Est GFR (MDRD) Non-Af 104 BUN/Creatinine Ratio 21.2 H Glucose 87 Calcium 9.1 Troponin I High Sens < 3 L Radiography Diagnostic Testing: Clinical Impression(s) from Imaging Studies Chest X-Ray 12/24/21 17:59 IMPRESSION: Normal x-ray examination of the chest. Electronically Signed: Dillan Haque MD at 18:10 EDT Reading Location ID and State: [address] [place] [address] , Service support , Discharge Plan Triage Chief Complaint: Chest Pain ED Provider: Royce Acosta Dx/Rx/DC Orders Instructions: ED Chest Pain, Noncardiac Prescriptions: No Action duloxetine 40 mg capsule,delayed release(DR/EC) 40 mg PO DAILY ondansetron [ondansetron] 4 MG tablet 4 mg PO Q8H PRN PRN (Reason: Nausea) Qty: 10 0RF diphenoxylate-atropine [Lomotil] 2.5-0.025 mg tablet 2 tab PO TID PRN (Reason: diarrhea) Qty: 20 0RF Primary Care Provider: Ivy Reynaga Referrals: Ivy Reynaga MD [Primary Care Provider] - Disposition Disposition: Home, Self Care
[2021-12-24 17:53] VITALS: BP 130/87; PULSE 103; RESP 18; O2SAT 99
--- NOTE | 2021-12-24 17:59 | RAD_ITS ---
STUDY: X-RAY CHEST REASON FOR EXAM: Female, 26 years old. chest pain TECHNIQUE: AP portable COMPARISON: None. FINDINGS: The lungs are clear and expanded. There is no demonstrated pleural abnormality. Normal size heart. Normal mediastinum and raegan. Normal visualized pulmonary arteries. Normal visualized aortic arch and descending thoracic aorta. Normal visualized thoracic spine. Normal visualized ribs, clavicles, and shoulders. There is no demonstrated abnormality of the visualized soft tissue structures of the upper abdomen. RAD/Chest 1 View (Portable) IMPRESSION: Normal x-ray examination of the chest. Electronically Signed: Dillan Haque MD at 18:10 EDT ,
[2021-12-24] MEDS: Aspirin 81 MG TAB.CHEW 324 MG PO (18:00)
[2021-12-24 18:24] LABS: Absolute Lymphocyte Count 2.71 X10^3/uL (0.83-4.51); Absolute Neutrophil Count 4.8 X10^3/uL (2.0-7.7); Basophil# 0.05 X10^3/uL; Basophil% 0.6 % (0-1); Eosinophil# 0.16 X10^3/uL; Hematocrit 39.2 % (37-47); Hemoglobin 13.4 g/dL (12.0-15.0); Lymphocyte # 2.71 X10^3/ul (0.83-4.51); Lymphocyte % 33.1 % (19-41); Mean Corp Hgb Conc 34.2 g/dL (32-36); Mean Corpuscular Hgb 28.6 pg (27.0-32.0); Mean Corpuscular Volume 83.8 fL (81-99); Mean Platelet Vol. 8.8 fl (6.2-12.0); Monocyte% 4.9 % (0-10); NRBC Flagged by Analyzer 0 % (0-5); Neutrophil # 4.84 X10^3/uL (2.7-7.7); Neutrophil % 59.2 % (47-70); Platelet Count 314 K/mm3 (150-450); RBC Distribution Width SD 39.1 fl (35.1-43.9); Red Blood Count 4.68 M/mm3 (4.2-5.4); White Blood Count 8.2 K/mm3 (4.4-11.0)
[2021-12-24 18:46] LABS: Anion Gap 7 (5-15); BUN 15 mg/dL (7-18); BUN/Creat Ratio 21.2 RATIO (10-20); Calcium,Total 9.1 mg/dL (8.5-10.1); Chloride 104 mmol/L (98-107); Creatinine, Serum 0.71 mg/dL (0.55-1.02); EST Glomerular Filtration Rate 104 mL/min (>60); Est Glom Filt Rate - Afr Amer 126 mL/min (>60); Estimated Creatinine Clearance 127.57 ml/min; Glucose 87 mg/dL (74-106); Potassium 3.9 mmol/L (3.5-5.1); Sodium Level 137 mmol/L (136-145); Troponin-I HS < 3 pg/mL (3.0-54.0)
== END 2021-12-24 19:08 | disposition home or self-care (01) ==
PROVIDERS: Emergency Provider Student in an Organized Health Care Education/Training Program; PCP Internal Medicine; Visit Provider Student in an Organized Health Care Education/Training Program
DX: R07.9 Chest pain, unspecified (principal); I48.91 Unspecified atrial fibrillation; I10 Essential (primary) hypertension
CPT/HCPCS: 71045; 80048; 84484; 85025; 93005; 99284; A4216

== ENCOUNTER 2022-06-10 16:18 | Emergency (ER) | payer OTHER, SELFPAY ==
[2022-06-10 16:19] VITALS: BP 165/113; PULSE 120; RESP 18; TEMP 36.4; O2SAT 97; BMI 47.6
[2022-06-10 16:28] VITALS: BP 141/74; PULSE 110; RESP 100; O2SAT 22
--- NOTE | 2022-06-10 16:32 | EKG12_ITS ---
Test Reason : CP Blood Pressure : / mmHG Vent. Rate : 107 BPM Atrial Rate : 107 BPM P-R Int : 130 ms QRS Dur : 072 ms QT Int : 324 ms P-R-T Axes : 036 024 038 degrees QTc Int : 432 ms Sinus tachycardia Otherwise normal ECG Confirmed by LUIS BERKOWITZ, EZE ([id number]), art editor BRYAN NORMAN ([id number]) on 06/12/2022 2:21:11 PM Referred By: ERIKA Confirmed By:EZE SMITH MD
--- NOTE | 2022-06-10 16:45 | RAD_ITS ---
STUDY: X-RAY CHEST REASON FOR EXAM: Female, 26 years old. Chest pain and palpitations beginning yesterday. History of hypertension and headache. TECHNIQUE: Single AP portable view of the chest. COMPARISON: December 24, 2021. FINDINGS: The lungs are clear and expanded. There is no demonstrated pleural abnormality. Normal size heart. Normal mediastinum and raegan. Normal visualized pulmonary arteries. Normal visualized aortic arch and descending thoracic aorta. Normal visualized thoracic spine. Normal visualized ribs, clavicles, and shoulders. There is no demonstrated abnormality of the visualized soft tissue structures of the upper abdomen. RAD/Chest 1 View (Portable) IMPRESSION: No acute cardiopulmonary disease or interval change. Electronically Signed: Mamadou Philippe DO at 16:55 EDT ,
[2022-06-10 16:46] LABS: Absolute Neutrophil Count 5.9 X10^3/uL (2.0-7.7); Basophil# 0.05 X10^3/uL; Basophil% 0.5 % (0-1); Eosinophil# 0.22 X10^3/uL; Eosinophils% 2.3 % (0-5); Hematocrit 41.3 % (37-47); Hemoglobin 13.1 g/dL (12.0-15.0); Lymphocyte % 30.2 % (19-41); Mean Corp Hgb Conc 31.7 g/dL (32-36); Mean Corpuscular Hgb 27.1 pg (27.0-32.0); Mean Corpuscular Volume 85.3 fL (81-99); Mean Platelet Vol. 8.7 fl (6.2-12.0); Monocyte# 0.51 X10^3/uL; Monocyte% 5.3 % (0-10); NRBC Flagged by Analyzer 0 % (0-5); Neutrophil # 5.88 X10^3/uL (2.7-7.7); Neutrophil % 61.4 % (47-70); Platelet Count 317 K/mm3 (150-450); RBC Distribution Width CV 12.9 % (11.6-14.6); RBC Distribution Width SD 39.5 fl (35.1-43.9); Red Blood Count 4.84 M/mm3 (4.2-5.4); White Blood Count 9.6 K/mm3 (4.4-11.0)
[2022-06-10 17:04] LABS: Anion Gap 5 (5-15); BUN 16 mg/dL (7-18); BUN/Creat Ratio 20.9 RATIO (10-20); Chloride 105 mmol/L (98-107); Creatinine, Serum 0.77 mg/dL (0.55-1.02); EST Glomerular Filtration Rate 95 mL/min (>60); Est Glom Filt Rate - Afr Amer 115 mL/min (>60); Estimated Creatinine Clearance 117.63 ml/min; Glucose 95 mg/dL (74-106); Potassium 3.6 mmol/L (3.5-5.1); Sodium Level 136 mmol/L (136-145); Troponin-I HS (w/2H Reflex) < 3 pg/mL (3.0-54.0)
--- NOTE | 2022-06-10 17:04 | EX.ED.DYSGE1 ---
HPI History of Present Illness Chief Complaint: Palpitations Narrative Narrative: 26-year-old female with palpitations and elevated blood pressure since yesterday. She is not having manuel chest pain or pressure. Denies lightheadedness or dizziness. She states that the palpitations have been ongoing for about 24 hours. She takes 1.5 tabs of metoprolol 125 mg p.o. twice daily. Medications have been unchanged. She notes that her blood pressure prior to coming to the emergency room was 160/110. She has had history of atrial fibrillation but is not anticoagulated. She states she has no other health issues. She has been eating and drinking normally. She is making normal urine and stool. No fever, chills, cough. No shortness of breath. No nausea or vomiting. PFSH PFSH Medical History Depression Essential hypertension Sinus tachycardia Home Medications methylphenidate HCl 36 mg tablet,extended release 24 hr 36 mg PO 06/10/22 [History Last Taken Unknown] metoprolol succinate 25 mg tablet,extended release 24 hr 40 mg PO DAILY 06/10/22 [History Last Taken Unknown] venlafaxine 75 mg capsule,extended release 24 hr (Effexor XR) 112.5 mg PO DAILY 06/10/22 [History Last Taken Unknown] Allergy/AdvReac Type Severity Reaction Status Date / Time azithromycin Allergy Swelling Verified 06/10/22 16:20 [From Zithromax Z-Lee] clarithromycin [From Biaxin] Allergy Swelling Verified 06/10/22 16:20 Family History Father Diabetes Grandmother Cancer Lung Grandfather Diabetes Mother Mitral valve prolapse Social History Smoking Status: Never smoker alcohol intake: never substance use type: does not use caffeine: Yes Type: carbonated beverages Number of servings: 2 and coffee Number of servings: 1 ROS ROS ED Constitutional Constitutional ED: Denies chills or fever(s) Eyes Eyes: Denies change in vision or diplopia ENT ENT ED: Denies rhinorrhea or sore throat Cardiovascular Cardiovascular: Reports palpitations and racing heartbeat; Denies chest pain Respiratory/Chest Respiratory/Chest: Denies cough or dyspnea Gastrointestinal Gastrointestinal: Denies abdominal pain, nausea or vomiting Genitourinary Genitourinary ED: Denies dysuria or hematuria Musculoskeletal Musculoskeletal: Denies arthralgias or neck pain Integumentary Denies abscess or Abrasions Neurologic Neurologic: Reports headache(s) Psychiatric Psychiatric: Denies anxiety or depression EXAM Physical Exam Const Vital Signs: 06/10/22 16:19 06/10/22 16:28 06/10/22 16:28 Temperature 97.6 F L Temperature Source Temporal Pulse Rate 120 H 110 H Respiratory Rate 18 100 H Respiratory Effort Normal Blood Pressure 165/113 H 141/74 H Blood Pressure Mean 130 96 Pulse Ox 97 22 Oxygen Delivery Method Room Air Room Air 06/10/22 16:44 Temperature Temperature Source Pulse Rate Respiratory Rate Respiratory Effort Blood Pressure Blood Pressure Mean Pulse Ox Oxygen Delivery Method Room Air Positive well nourished General Appearance ED: NAD; Negative for pallor HEENT Reports moist mucous membranes Eyes PERRL and EOMs intact bilaterally Resp normal respiratory effort and clear to auscultation bilaterally Auscultation: Negative for rales, rhonchi or wheezes Cardio regular rhythm Rate: tachycardic Neuro oriented x3 and CN's II-XII intact bilaterally Sensorium / Orientation: alert Psych mental status grossly normal Skin General Skin Exam: Negative for jaundice or pallor MDM MDM MDM Narrative Medical decision making narrative: Patient presenting with palpitations. She does have history of this. She states that has been ongoing for about 24 hours. Patient does have history anxiety but does not feels like she is anxious. She takes 1.5 tabs of metoprolol 125 mg p.o. twice daily and has not had any changes. Denies manuel chest pain or pressure. He is not short of breath. He is not lightheaded or dizzy. Differential includes sinus tachycardia, atrial fibrillation, electrode abnormality, dehydration, ACS, PE. CBC to assess white blood cell count, hemoglobin, platelets, differential. BMP to assess renal function, electrolytes, glucose, anion gap. High-sensitivity troponin, EKG and chest x-ray to assess cardiac etiology. Patient second pressure is normalized to 141/74. This is much improved. CBC shows a normal white blood cell count at 9.6. Hemoglobin stable at 13.1. Platelets normal. D-dimer negative at 0.27. Renal function electrolytes within normal limits. High-sensitivity troponin is less than 3 and I do not believe she needs a delta troponin. Chest x-ray on my interpretation shows no acute cardiopulmonary process. Radiologist interprets this and agrees. Patient's heart rate now in 80s. Blood pressure is improved. Discussed her work-up is ultimately negative. Recommend she follow-up with her primary care and cardiology. She is amenable to this. Discharged home in stable condition. Impression: 1. Palpitations 2. Tachycardia 3. Hypertension Lab Data Labs: Laboratory Results - last 24 hr 06/10/22 06/10/22 06/10/22 16:30 16:30 16:30 WBC 9.6 RBC 4.84 Hgb 13.1 Hct 41.3 MCV 85.3 MCH 27.1 MCHC 31.7 L RDW Std Deviation 39.5 RDW Coeff of Krystin 12.9 Plt Count 317 MPV 8.7 Immature Gran % (Auto) 0.300 Neut % (Auto) 61.4 Lymph % (Auto) 30.2 [place] % (Auto) 5.3 Eos % (Auto) 2.3 Baso % (Auto) 0.5 Absolute Neuts (auto) 5.9 Absolute Lymphs (auto) 2.90 Nucleated RBC % 0 D-Dimer Quant (PE/DVT) < 0.27 L Sodium 136 Potassium 3.6 Chloride 105 Carbon Dioxide 26.0 Anion Gap 5 BUN 16 Creatinine 0.77 Estim Creat Clear Calc 117.63 Est GFR (MDRD) Af Amer 115 Est GFR (MDRD) Non-Af 95 BUN/Creatinine Ratio 20.9 H Glucose 95 Calcium 9.0 Troponin I High Sens < 3 L Radiography Diagnostic Testing: Clinical Impression(s) from Imaging Studies Chest X-Ray 06/10/22 16:45 IMPRESSION: No acute cardiopulmonary disease or interval change. Electronically Signed: Mamadou Philippe DO at 16:55 EDT Reading Location ID and State: [address] [place] [address] Tel [phone], Service support , Discharge Plan Triage Chief Complaint: Palpitations ED Provider: Royce Acosta Dx/Rx/DC Orders Instructions: ED Palpitations Prescriptions: No Action venlafaxine [Effexor XR] 75 mg Capsule,Extended Release 24hr 112.5 mg PO DAILY metoprolol succinate 25 mg Tablet Extended Release 24 Hr 40 mg PO DAILY methylphenidate HCl 36 mg tablet extended release 24hr 36 mg PO Label Comments: TAKE 1 TABLET BY MOUTH ONCE DAILY FOR 30 DAYS Primary Care Provider: Ivy Reynaga Referrals: Ivy Reynaga MD [Primary Care Provider] - Disposition Disposition: Home, Self Care
[2022-06-10 17:14] LABS: D-Dimer Quantitative (DVT/PE) < 0.27 FEU/ug/m (0.27-0.49)
[2022-06-10 18:43] LABS: Reflex Troponin-HS? (from REC) Y
[2022-06-10 19:04] VITALS: BP 133/74
[2022-06-10 19:06] LABS: Troponin-I HS < 3 pg/mL (3.0-54.0)
== END 2022-06-10 19:05 | disposition home or self-care (01) ==
PROVIDERS: Emergency Provider Student in an Organized Health Care Education/Training Program; PCP Internal Medicine; Visit Provider Student in an Organized Health Care Education/Training Program
DX: R00.2 Palpitations (principal); I10 Essential (primary) hypertension; R51.9 Headache, unspecified; Z86.59 Personal history of other mental and behavioral disorders
CPT/HCPCS: 71045; 80048; 84484; 85025; 85379; 93005; 99284; A4216

== ENCOUNTER 2022-09-01 13:46 | Emergency (ER) | payer OTHER, SELFPAY ==
[2022-09-01 13:47] VITALS: BP 164/108; PULSE 108; RESP 18; TEMP 36.6; O2SAT 98; BMI 48.0
--- NOTE | 2022-09-01 14:28 | CT_ITS ---
STUDY: CT ABDOMEN AND PELVIS WITH CONTRAST REASON FOR EXAM: Female, 27 years old. abd pain -- mid left pain, blood from umbilicus RADIATION DOSAGE (If Supplied By Facility): CTDIvol = ( 18.73 ) mGy, DLP = ( 1407.91 ) mGycm TECHNIQUE: Transaxial images were obtained from the dome of the diaphragm to the symphysis pubis without oral contrast. IV 100mL Isovue-300 was administered. Sagittal and coronal images were reconstructed. Individualized dose optimization techniques were used for this CT. COMPARISON: None. FINDINGS: Exam limited by patient size which decreases resolution and causes artifact. The visualized lung bases are unremarkable. The visualized portions of the heart are within normal limits. Normal liver. Normal gallbladder and extrahepatic biliary system. Normal spleen. Normal pancreas. Normal bilateral adrenal glands. Normal right kidney. Normal left kidney. Normal visualized stomach. Normal small intestine. Normal colon. The appendix is visualized and appears normal. Normal abdominal aorta. Normal inferior vena cava. Normal retroperitoneum. Normal urinary bladder. Normal visualized uterus. Normal abdominal wall. Grossly normal appearance of the umbilicus. Normal osseous structures. CT/Abdomen/Pelvis W IV Cont ONLY IMPRESSION: No definite acute or significant abnormality seen. Electronically Signed: Dajuan Linares MD at 16:46 EDT ,
[2022-09-01] MEDS: Ondansetron 4 MG/2 ML Vial IV (14:41)
[2022-09-01] MEDS: 0.9% Normal Saline 1,000 ML 125 ML IV (14:41)
[2022-09-01] MEDS: Contrast Allergy Safety Check IV (14:45)
[2022-09-01 14:47] LABS: Absolute Lymphocyte Count 2.46 X10^3/uL (0.83-4.51); Absolute Neutrophil Count 5.4 X10^3/uL (2.0-7.7); Basophil# 0.05 X10^3/uL; Basophil% 0.6 % (0-1); Eosinophil# 0.14 X10^3/uL; Eosinophils% 1.6 % (0-5); Hematocrit 44.2 % (37-47); Hemoglobin 14.1 g/dL (12.0-15.0); Lymphocyte # 2.46 X10^3/ul (0.83-4.51); Lymphocyte % 28.7 % (19-41); Mean Corp Hgb Conc 31.9 g/dL (32-36); Mean Corpuscular Hgb 26.9 pg (27.0-32.0); Mean Corpuscular Volume 84.4 fL (81-99); Mean Platelet Vol. 8.9 fl (6.2-12.0); Monocyte# 0.48 X10^3/uL; Monocyte% 5.6 % (0-10); NRBC Flagged by Analyzer 0 % (0-5); Neutrophil # 5.42 X10^3/uL (2.7-7.7); Neutrophil % 63.2 % (47-70); Platelet Count 311 K/mm3 (150-450); Red Blood Count 5.24 M/mm3 (4.2-5.4); White Blood Count 8.6 K/mm3 (4.4-11.0)
[2022-09-01 15:04] LABS: AST(SGOT) 16 U/L (15-37); Alanine Aminotransfer ALT/SGPT 27 U/L (13-56); Albumin, Serum 3.6 g/dL (3.2-5.0); Alkaline Phosphatase 69 U/L (45-117); Anion Gap 6 (5-15); BUN 13 mg/dL (7-18); BUN/Creat Ratio 17.3 RATIO (10-20); Calcium,Total 8.9 mg/dL (8.5-10.1); Chloride 105 mmol/L (98-107); Creatinine, Serum 0.75 mg/dL (0.55-1.02); EST Glomerular Filtration Rate 97 mL/min (>60); Est Glom Filt Rate - Afr Amer 117 mL/min (>60); Estimated Creatinine Clearance 119.68 ml/min; Globulin 3.6 g/dL (2.2-4.2); Glucose 91 mg/dL (74-106); Lipase 29 U/L (13-75); Protein, Total 7.2 g/dL (6.4-8.2); Sodium Level 136 mmol/L (136-145)
[2022-09-01 16:04] LABS: Internal QC Validated? YES +Cl - CLEAR BKGD; Pregnancy, Serum, hCG Quali. NEGATIVE Negative
--- NOTE | 2022-09-01 16:26 | EDS_ITS ---
HPI HPI - GI History of Present Illness Chief Complaint: Abd Pain Informant: patient Narrative Narrative: Left mid abdominal pain since morning reported blood coming from her umbilicus. Denies taking this area. Denies trauma. Nausea without vomiting. Normal bowel this morning with normal daily bowel movements. No abdominal surgeries in the past. Normal menstrual periods. Denies urinary symptoms. Denies any alcohol history. Denies history of similar symptoms in the past. History of hypertension, ADHD and anxiety on medications. Prior similar symptoms: No PFSH PFSH Medical History Depression Essential hypertension Sinus tachycardia Home Medications methylphenidate HCl 36 mg tablet,extended release 24 hr 36 mg PO 06/10/22 [History Last Taken Unknown] metoprolol succinate 25 mg tablet,extended release 24 hr 40 mg PO DAILY 06/10/22 [History Last Taken Unknown] venlafaxine 75 mg capsule,extended release 24 hr (Effexor XR) 112.5 mg PO DAILY 06/10/22 [History Last Taken Unknown] ondansetron 4 mg disintegrating tablet 4 mg PO Q8H PRN PRN Nausea #10 tabs 09/01/22 [Rx Last Taken Unknown] Allergy/AdvReac Type Severity Reaction Status Date / Time azithromycin Allergy Swelling Verified 09/01/22 13:49 [From Zithromax Z-Lee] clarithromycin [From Biaxin] Allergy Swelling Verified 09/01/22 13:49 Family History Father Diabetes Grandmother Cancer Lung Grandfather Diabetes Mother Mitral valve prolapse Social History Smoking Status: Never smoker alcohol intake: never substance use type: does not use caffeine: Yes Type: carbonated beverages Number of servings: 2 and coffee Number of servings: 1 ROS ROS ED Constitutional Constitutional ED: Denies chills, fever(s) or sweats Eyes Eyes: Denies change in vision ENT ENT ED: Denies dysphagia or sore throat Cardiovascular Cardiovascular: Denies chest pain, leg edema, palpitations or racing heartbeat Respiratory/Chest Respiratory/Chest: Denies cough, dyspnea or dyspnea on exertion Gastrointestinal Gastrointestinal: Reports abdominal pain and nausea; Denies diarrhea or vomiting Genitourinary Genitourinary ED: Denies dysuria, hematuria or urinary frequency Musculoskeletal Musculoskeletal: Denies back pain, extremity pain or neck pain Integumentary Denies rash or wounds Neurologic Neurologic: Denies headache(s), paresthesias or weakness EXAM Physical Exam Const Vital Signs: 09/01/22 13:47 09/01/22 17:05 Temperature 97.8 F Temperature Source Temporal Pulse Rate 108 H Respiratory Rate 18 16 Blood Pressure 164/108 H Blood Pressure Mean 126 Pulse Ox 98 Oxygen Delivery Method Room Air Positive well nourished and well developed General Appearance ED: well developed and NAD HEENT Reports moist mucous membranes normocephalic and atraumatic Eyes PERRL, EOMs intact bilaterally and conjunctivae normal General Eye ED: Yes normal appearance of both eyes Neck no lymphadenopathy and supple General: Negative for tenderness Chest Wall Chest: Negative for tenderness Resp normal respiratory effort and normal air movement Effort and Inspection: symmetric chest movement; Negative for respiratory distress Cardio regular rate, regular rhythm and no murmurs Peripheral Pulses: pulses 2+ throughout GI normal to inspection, nondistended, normoactive bowel sounds GI Narrative: Negative Calderón's McBurney's tenderness. There was dried blood appearance in the umbilicus, there is no fluctuance no indurations. Mild pain lateral mid abdomen. No guarding or rebound. Palpation: Negative for guarding or rebound tenderness present Back/Spine no CVA tenderness and no thoracic nor lumbar tenderness Extremity normal to inspection General Extremety ED: Negative for edema or tenderness General Extremity: Negative for edema Neuro oriented x3 and no sensory deficits noted Sensorium / Orientation: awake and alert Skin no rashes or lesions noted and no wounds MDM MDM MDM Narrative Medical decision making narrative: Interventions / MDM: Differential diagnosis: Pancreatitis, abscess, colitis Diagnosis considered but do not suspect: N/A My EKG interpretation: N/A Imaging independently reviewed and interpreted by myself: CT abdomen pelvis IV contrast: No acute process. No abscess noted. External documents reviewed: N/A Test considered but not ordered:N/A ED course: Patient nonsurgical abdomen. Reporting increasing pain with concern for blood from umbilicus. Abdominal labs were ordered CT scan IV contrast of the abdomen pelvis. IV fluids started Zofran given. 1625: Abdominal labs are all on the normal negative. Lipase 29. White count 8.6. Patient pending CT scan with results. 1730: CT scans negative, I did gently probe with a Q-tip for umbilicus area, there was pink tinge deep area there is no exudates. There is no fluctuance in the area. There is no progressing pain soft abdomen on reevaluation. Vague pain middle area discussed monitor for any progression that could develop into peritoneal findings either specific quadrants. Discussed with patient will monitor symptoms use Tylenol as needed prescription for Zofran. If any worsening or developing symptoms return for reevaluation. Patient understands agrees with plan. Re-evaluation: stable Disposition discussed with patient/family/significant other: Patient Case discussed with consulting clinician: N/A This note was generated with [employer] software. It may contain incorrect words, spelling, and punctuation that were not noted in checking the note before signing. Lab Data Attestation: I reviewed the patient's lab results. Labs: Laboratory Results - last 24 hr 09/01/22 09/01/22 14:42 15:30 WBC 8.6 RBC 5.24 Hgb 14.1 Hct 44.2 MCV 84.4 MCH 26.9 L MCHC 31.9 L RDW Std Deviation 40.0 RDW Coeff of Krystin 13.0 Plt Count 311 MPV 8.9 Immature Gran % (Auto) 0.300 Neut % (Auto) 63.2 Lymph % (Auto) 28.7 [place] % (Auto) 5.6 Eos % (Auto) 1.6 Baso % (Auto) 0.6 Absolute Neuts (auto) 5.4 Absolute Lymphs (auto) 2.46 Nucleated RBC % 0 Sodium 136 Potassium 4.0 Chloride 105 Carbon Dioxide 25.0 Anion Gap 6 BUN 13 Creatinine 0.75 Estim Creat Clear Calc 119.68 Est GFR (MDRD) Af Amer 117 Est GFR (MDRD) Non-Af 97 BUN/Creatinine Ratio 17.3 Glucose 91 Calcium 8.9 Total Bilirubin 0.30 AST 16 ALT 27 Alkaline Phosphatase 69 Total Protein 7.2 Albumin 3.6 Globulin 3.6 Albumin/Globulin Ratio 1.0 Lipase 29 Serum , Qual NEGATIVE Radiography Diagnostic Testing: Clinical Impression(s) from Imaging Studies Abdomen/Pelvis CT 09/01/22 14:28 IMPRESSION: No definite acute or significant abnormality seen. Electronically Signed: Dajuan Linares MD at 16:46 EDT , Discharge Plan Triage Chief Complaint: Abd Pain ED Provider: Binh Gonzalez Dx/Rx/DC Orders Clinical Impression: Umbilicus discharge, Abdominal pain Instructions: Abdominal Pain Prescriptions: New ondansetron [ondansetron] 4 mg tablet,disintegrating 4 mg PO Q8H PRN PRN (Reason: Nausea) Qty: 10 0RF No Action venlafaxine [Effexor XR] 75 mg Capsule,Extended Release 24hr 112.5 mg PO DAILY metoprolol succinate 25 mg Tablet Extended Release 24 Hr 40 mg PO DAILY methylphenidate HCl 36 mg tablet extended release 24hr 36 mg PO Patient Comments: TAKE 1 TABLET BY MOUTH ONCE DAILY FOR 30 DAYS Primary Care Provider: Ivy Reynaga Referrals: Ivy Reynaga MD [Primary Care Provider] - 3-5 Days Activity Restrictions/Additional Instructions: Blood from the umbilicus CT scan no signs of abscess. Normal structures your abdomen. Your blood work is normal. May use Tylenol, Zofran as needed. Monika tor symptoms as discussed if any worsening directing to her specific area for return for reevaluation otherwise follow-up with your doctor. Disposition Disposition: Home, Self Care
[2022-09-01 17:05] VITALS: RESP 16
== END 2022-09-01 17:41 | disposition home or self-care (01) ==
PROVIDERS: Emergency Provider Emergency Medicine; PCP Internal Medicine; Visit Provider Emergency Medicine
DX: R89.9 Unspecified abnormal finding in specimens from other organs, systems and tissues (principal); R11.0 Nausea; I10 Essential (primary) hypertension; R10.9 Unspecified abdominal pain
CPT/HCPCS: 74177; 80053; 83690; 84703; 85025; 96361; 96374; 99283; J7040; Q9967; A4216; J2405

== ENCOUNTER 2022-11-12 19:14 | Emergency (ER) | payer OTHER, SELFPAY ==
[2022-11-12 19:16] VITALS: BP 131/69; PULSE 85; RESP 18; TEMP 36.7; O2SAT 98; BMI 46.1
[2022-11-12 19:28] LABS: Bacteria 0 SEEN /hpf (None Seen); Mucous, Urine 0 SEEN /hpf (<or=2+); Red Blood Cells-Urine 0 SEEN /hpf (0-5); Squamous Epithelial Cells - UA 0 SEEN /hpf (5-10); White Blood Cells 0 SEEN /hpf (0-5)
[2022-11-12 19:29] LABS: Color, Urine Yellow (Yellow); Glucose, Dipstick Normal (Normal); Ketone-Dipstick Negative (Negative); Leukocyte Esterase-Dipstick Negative /ul (Negative); Nitrite-Dipstick Negative (Negative); Occult Blood-Urine 10 /ul (Negative); Protein-Dipstick Negative (Negative); Urine Bilirubin Dipstick Negative (Negative); Urine Clarity Clear (Clear); Urine Urobilinogen Normal (Normal)
--- NOTE | 2022-11-12 21:21 | CT_ITS ---
INDICATION: LLQ pain EXAMINATION: CT Abdomen And Pelvis W/O Contrast Injection TECHNIQUE: Helically acquired images were obtained of the abdomen and pelvis with sagittal and coronal reconstructed images. Individualized dose optimization techniques were used for this CT. IV contrast dosage and agent: None. Oral contrast: None. COMPARISON: 09/01/2022. FINDINGS: VESSELS: No abdominal aortic aneurysm. LIVER: No intrahepatic or extrahepatic biliary duct dilation. GALLBLADDER: No calcified stones. No evidence of cholecystitis. PANCREAS: No focal solid or cystic mass. No evidence of pancreatitis. SPLEEN: Normal. ADRENAL GLANDS: Normal. KIDNEYS AND URETERS: 2 mm right renal stone. No hydronephrosis or hydroureter. No significant asymmetric perinephric stranding. URINARY BLADDER: Unremarkable. BOWEL: No evidence of diverticulosis or diverticulitis. Appendix appears normal. No evidence of bowel obstruction. REPRODUCTIVE ORGANS: Unremarkable. PERITONEUM: No intraabdominal free fluid or free air. LYMPH NODES: No pathologically enlarged mesenteric or retroperitoneal lymph nodes. ABDOMINAL WALL: No abdominal or pelvic wall hernia. BONES: No acute abnormality. LOWER CHEST: Visualized lung bases are unremarkable. CT/Abdomen/Pelvis without Cont IMPRESSION: No acute abnormality. Electronically Signed: Dillan De Luna DO at 22:18 EDT ,
--- NOTE | 2022-11-12 21:22 | EX.ED.DYSGE1 ---
HPI History of Present Illness Chief Complaint: Complaint Detail of Chief Complaint: Left lower quadrant abdominal pain and urinary frequency Informant: patient Narrative Narrative: Patient presents to the emergency department with left lower quadrant pain and urinary frequency that started yesterday. She went to urgent care and was told there was blood in her urine and there was concern about diverticulitis and was referred to the ER. Patient denies nausea or vomiting. She denies fevers. She has no history of diverticulitis. No history of kidney stones. Last menstrual period was 1 week ago. Patient denies abnormal vaginal discharge or bleeding. PFSH PFSH Medical History Depression Essential hypertension Sinus tachycardia Home Medications methylphenidate HCl 36 mg tablet,extended release 24 hr 36 mg PO 06/10/22 [History Last Taken Unknown] metoprolol succinate 25 mg tablet,extended release 24 hr 40 mg PO DAILY 06/10/22 [History Last Taken Unknown] venlafaxine 75 mg capsule,extended release 24 hr (Effexor XR) 112.5 mg PO DAILY 06/10/22 [History Last Taken Unknown] ondansetron 4 mg disintegrating tablet 4 mg PO Q8H PRN PRN Nausea #10 tabs 09/01/22 [Rx Last Taken Unknown] Allergy/AdvReac Type Severity Reaction Status Date / Time azithromycin Allergy Swelling Verified 11/12/22 21:08 [From Zithromax Z-Lee] clarithromycin [From Biaxin] Allergy Swelling Verified 11/12/22 21:08 Family History Father Diabetes Grandmother Cancer Lung Grandfather Diabetes Mother Mitral valve prolapse Social History Smoking Status: Never smoker alcohol intake: never substance use type: does not use caffeine: Yes Type: carbonated beverages Number of servings: 2 and coffee Number of servings: 1 ROS ROS ED Review of Systems ROS Unobtainable: other Constitutional Constitutional ED: Reports lethargy; Denies chills, fever(s), sweats or weight loss Eyes Eyes: Denies blurry vision, change in vision or diplopia ENT ENT ED: Denies rhinorrhea or sore throat Cardiovascular Cardiovascular: Reports chest pain and racing heartbeat; Denies orthopnea Respiratory/Chest Respiratory/Chest: Reports dyspnea and dyspnea on exertion; Denies cough, orthopnea or sputum Gastrointestinal Gastrointestinal: Reports abdominal pain; Denies diarrhea, nausea or vomiting Genitourinary Genitourinary ED: Reports urinary frequency; Denies dysuria or hematuria Musculoskeletal Musculoskeletal: Denies arthralgias, back pain, myalgias or neck pain Integumentary Denies abscess, Abrasions or rash Neurologic Neurologic: Denies headache(s) or weakness Psychiatric Psychiatric: Denies anxiety, depression or suicidal thoughts Endocrine Endocrinology: Denies polydipsia, polyphagia or polyuria Hematologic/Lymphatic Hematologic/Lymphatic: Denies easy bleeding, easy bruising or lymphadenopathy Allergic/Immunologic Allergic/Immunologic ED: Denies mouth swelling, tongue swelling or urticaria EXAM Physical Exam Const Vital Signs: 11/12/22 19:16 11/12/22 21:25 11/12/22 22:43 Temperature 98.1 F Temperature Source Temporal Pulse Rate 85 71 Respiratory Rate 18 17 19 H Blood Pressure 131/69 H 144/97 H Blood Pressure Mean 89 112 Pulse Ox 98 99 Oxygen Delivery Method Room Air Room Air Positive well nourished and well developed General Appearance ED: well developed and NAD HEENT Reports TM's clear and moist mucous membranes normocephalic and atraumatic; Negative for trauma or tenderness Tympanic Membrane ED: Yes TM's clear Eyes PERRL and EOMs intact bilaterally General Eye ED: Negative for pale conjunctiva or scleral icterus Neck no lymphadenopathy, supple and no JVD General: Negative for tenderness Chest Wall inspection of chest normal and palpation of chest normal Chest: Negative for tenderness Resp normal respiratory effort and clear to auscultation bilaterally Effort and Inspection: Negative for respiratory distress or pain with movement Auscultation: Negative for rhonchi, wheezes or diminished lung sounds Cardio regular rate, regular rhythm, S1 normal heart sound, S2 normal heart sound and no murmurs Peripheral Pulses: pulses 2+ throughout GI normal to inspection, nondistended, normoactive bowel sounds, soft to palpation, non-distended and no masses GI Narrative: Tenderness to palpation over left lower quadrant with some guarding. There is no rebound, rigidity, or peritoneal signs. No mass palpated. Mild CVA tenderness on the left. Back/Spine no thoracic nor lumbar tenderness Back/Spine Narrative: Mild CVA tenderness on the left. Extremity normal to inspection General Extremety ED: Negative for edema General Extremity: Negative for edema Neuro oriented x3, CN's II-XII intact bilaterally, no sensory deficits noted and gait normal Sensorium / Orientation: awake, alert, oriented to person, oriented to place and oriented to time Motor Exam: strength 5/5 throughout and strength abnormal Psych mental status grossly normal Skin no rashes or lesions noted and no wounds MDM MDM MDM Narrative Medical decision making narrative: Patient presents with urinary frequency and left lower quadrant abdominal pain. In the differential would be UTI versus kidney stone versus diverticulitis or other acute process. IV line established. CBC with differential showed a white count of 8.9 with hemoglobin 12.7 and platelet count of 291. Chemistries unremarkable. Patient had a urinalysis that was normal hCG was negative. Patient had a CT flank that was normal. This point etiology of her urinary frequency unclear. She is not on diuretics. Patient advised to follow-up with her primary care physician within next 3 to 5 days. Advised to return if dysuria, urgency, fever, or condition should worsen anyway. Lab Data Attestation: I reviewed the patient's lab results. Labs: Laboratory Results - last 24 hr 11/12/22 11/12/22 11/12/22 19:26 19:29 21:40 WBC 8.9 RBC 4.66 Hgb 12.7 Hct 39.8 MCV 85.4 MCH 27.3 MCHC 31.9 L RDW Std Deviation 40.5 RDW Coeff of Krystin 13.1 Plt Count 291 MPV 8.6 Immature Gran % (Auto) 0.200 Neut % (Auto) 56.3 Lymph % (Auto) 34.5 [place] % (Auto) 5.8 Eos % (Auto) 2.7 Baso % (Auto) 0.5 Absolute Neuts (auto) 5.0 Absolute Lymphs (auto) 3.05 Nucleated RBC % 0 Sodium 137 Potassium 3.8 Chloride 106 Carbon Dioxide 29.0 Anion Gap 2 L BUN 18 Creatinine 0.88 Estim Creat Clear Calc 105.43 Est GFR (MDRD) Af Amer 98 Est GFR (MDRD) Non-Af 81 BUN/Creatinine Ratio 20.5 H Glucose 95 Calcium 8.5 Urine Color Yellow Urine Clarity Clear Urine pH 6.0 Ur Specific [place] 1.020 Urine Protein Negative Urine Glucose (UA) Normal Urine Ketones Negative Urine Occult Blood 10 H Urine Nitrite Negative Urine Bilirubin Negative Urine Urobilinogen Normal Ur Leukocyte Esterase Negative Urine RBC 0 SEEN Urine WBC 0 SEEN Ur Squamous Epith Cells 0 SEEN Urine Bacteria 0 SEEN Urine Mucus 0 SEEN Urine Test Negative Radiography Diagnostic Testing: Clinical Impression(s) from Imaging Studies Abdomen/Pelvis CT 11/12/22 21:21 IMPRESSION: No acute abnormality. Electronically Signed: Dillan De LunaDO at 22:18 EDT , Discharge Plan Triage Chief Complaint: Complaint ED Provider: Muriel Hutson Dx/Rx/DC Orders Clinical Impression: Urinary frequency, Abdominal pain Instructions: ED Abdominal Pain Unkn Cause Fem, ED Symptoms With Uncertain Cause Prescriptions: No Action venlafaxine [Effexor XR] 75 mg Capsule,Extended Release 24hr 112.5 mg PO DAILY metoprolol succinate 25 mg Tablet Extended Release 24 Hr 40 mg PO DAILY methylphenidate HCl 36 mg tablet extended release 24hr 36 mg PO Patient Comments: TAKE 1 TABLET BY MOUTH ONCE DAILY FOR 30 DAYS ondansetron [ondansetron] 4 mg tablet,disintegrating 4 mg PO Q8H PRN PRN (Reason: Nausea) Qty: 10 0RF Primary Care Provider: Ivy Reynaga Referrals: Ivy Reynaga MD [Primary Care Provider] - 3-5 Days Disposition Disposition: Home, Self Care Discharge Date/Time: 11/12/22 22:44
[2022-11-12 21:25] VITALS: BP 144/97; PULSE 71; RESP 17; O2SAT 99
[2022-11-12 21:49] LABS: Internal QC Validated? YES +Cl - CLEAR BKGD; Pregnancy, Urine Negative Negative
[2022-11-12 21:51] LABS: Absolute Lymphocyte Count 3.05 X10^3/uL (0.83-4.51); Basophil# 0.04 X10^3/uL; Basophil% 0.5 % (0-1); Eosinophil# 0.24 X10^3/uL; Eosinophils% 2.7 % (0-5); Hematocrit 39.8 % (37-47); Hemoglobin 12.7 g/dL (12.0-15.0); Lymphocyte # 3.05 X10^3/ul (0.83-4.51); Lymphocyte % 34.5 % (19-41); Mean Corp Hgb Conc 31.9 g/dL (32-36); Mean Corpuscular Hgb 27.3 pg (27.0-32.0); Mean Corpuscular Volume 85.4 fL (81-99); Mean Platelet Vol. 8.6 fl (6.2-12.0); Monocyte# 0.51 X10^3/uL; Monocyte% 5.8 % (0-10); NRBC Flagged by Analyzer 0 % (0-5); Neutrophil # 4.99 X10^3/uL (2.7-7.7); Neutrophil % 56.3 % (47-70); Platelet Count 291 K/mm3 (150-450); RBC Distribution Width CV 13.1 % (11.6-14.6); RBC Distribution Width SD 40.5 fl (35.1-43.9); Red Blood Count 4.66 M/mm3 (4.2-5.4); White Blood Count 8.9 K/mm3 (4.4-11.0)
[2022-11-12 22:08] LABS: Anion Gap 2 (5-15); BUN 18 mg/dL (7-18); BUN/Creat Ratio 20.5 RATIO (10-20); Calcium,Total 8.5 mg/dL (8.5-10.1); Chloride 106 mmol/L (98-107); Creatinine, Serum 0.88 mg/dL (0.55-1.02); EST Glomerular Filtration Rate 81 mL/min (>60); Est Glom Filt Rate - Afr Amer 98 mL/min (>60); Estimated Creatinine Clearance 105.43 ml/min; Glucose 95 mg/dL (74-106); Potassium 3.8 mmol/L (3.5-5.1); Sodium Level 137 mmol/L (136-145)
--- NOTE | 2022-11-12 22:42 | ED.RN ---
PT REFUSED TO LET THIS RN TAKE VITAL SIGNS PRIOR TO DISCHARGE. THIS RN ENTERED ROOM AND ASKED TO TAKE PT VITAL SIGNS PRIOR TO DISCHARGE. PT STATES I'M FINE. PT RESPIRATIONS 19 EVEN, NONLABORED AT DISCHARGE.
[2022-11-12 22:43] VITALS: RESP 19
== END 2022-11-12 22:44 | disposition home or self-care (01) ==
PROVIDERS: Emergency Provider Emergency Medicine; PCP Internal Medicine; Visit Provider Emergency Medicine
DX: R35.0 Frequency of micturition (principal); I10 Essential (primary) hypertension; R31.9 Hematuria, unspecified; R10.32 Left lower quadrant pain; R07.9 Chest pain, unspecified; R06.09 Other forms of dyspnea
CPT/HCPCS: 74176; 80048; 81001; 81025; 85025; 99283; A4216